=== PATIENT | female | born 1935 | race Caucasian/White ===

== ENCOUNTER 2018-12-25 10:57 | Emergency (ER) | payer MEDICARE ==
[~2018-12-25] VITALS: Ht 154.9 cm; Wt 61.2 kg
[2018-12-25] MEDS ORDERED: MORPHINE SULFATE INJ 4 MG/ML INJ 1ML ONE (11:53)
[2018-12-25] MEDS ORDERED: MORPHINE SULFATE INJ 4 MG/ML INJ 1ML IM ONE (12:00)
[2018-12-25] MEDS ORDERED: BACLOFEN10 MG PO (12:08)
[2018-12-25] MEDS ORDERED: AMLODIPINE BESYL5 MG PO (12:08)
[2018-12-25] MEDS ORDERED: MULTI-VITAMIN1 EACH (12:08)
[2018-12-25] MEDS ORDERED: ULTRAM50 MG PO (12:08)
--- NOTE | 2018-12-25 12:39 | Diagnostic Imaging Report ---
EXAMINATION: HIP 2VW LT W/PELVIS - HOPD INDICATION: Hip pain COMPARISON: None FINDINGS: No acute fracture or dislocation. Multilevel degenerative changes of the partially visualized lower lumbar spine. Moderate degenerative changes of both hip joints. Left greater than right gluteal enthesopathy. Atherosclerotic arterial vascular calcifications. Nonobstructive bowel gas pattern. IMPRESSION: No acute osseous injury. Degenerative changes as above. Signed by: Vanessa Yao MD on 12/25/2018 12:36 PM
[2018-12-25] MEDS ORDERED: TRAMADOL HCL 50 MG TAB PO ONE (12:45)
[2018-12-25] MEDS ORDERED: TRAMADOL HCL 50 MG TAB ONE (12:50)
--- NOTE | 2018-12-25 13:08 | Diagnostic Imaging Report ---
EXAMINATION: L SPINE 2-3 VEWS - HOPD INDICATION: Back pain COMPARISON: None FINDINGS: No acute fracture. Vertebral body heights are maintained. Alignment is anatomic. There are multilevel degenerative changes of the lumbar spine with disc space narrowing, osteophyte formation, and facet arthropathy. Mild diffuse osteopenia. Nonobstructive bowel gas pattern. Status post cholecystectomy. Diffuse atherosclerotic vascular calcifications. IMPRESSION: No compression fracture. Multilevel lumbar spine degenerative changes. Signed by: Vanessa Yao MD on 12/25/2018 1:05 PM
[2018-12-25] MEDS ORDERED: KETOROLAC TROMETHAMINE 30 MG/ML VIAL IM ONE (14:00)
[2018-12-25] MEDS ORDERED: KETOROLAC TROMETHAMINE 60 MG/2 ML VIAL ONE (14:09)
[2018-12-25 14:16] VITALS: BP 167/92
== END 2018-12-25 14:23 | disposition home or self-care (01) ==
LOC: FSED 10:57
DX: M54.42 Lumbago with sciatica, left side (principal); M47.26 Other spondylosis with radiculopathy, lumbar region; M48.56XA Collapsed vertebra, not elsewhere classified, lumbar region, initial encounter for fracture
CPT/HCPCS: 72100; 72170; 73502; 96372; 99283; J1885 ×2; J2270